=== PATIENT | female | born 1960 | race Caucasian/White ===

== ENCOUNTER 2025-06-30 09:56 | Outpatient (CLI) | payer MEDICARE, OTHER ==
[~2025-06-30 09:56] MED LIST: ROSU10TA98 PO
--- NOTE | 2025-06-30 14:01 | RADIOLOGY REPORT ---
CLINICAL INDICATION: IMPINGEMENT SYNDROME OF RIGHT SHOULDER COMPARISON: None. TECHNIQUE: Multiplanar, multisequence MRI of the right shoulder was performed without contrast. Contrast: None FINDINGS: Glenohumeral joint: There is no acute fracture. There is bone marrow edema in the humeral head adjacent to a high-grade articular cartilage defect with exposed bone and small osteophytes in the humeral head. Glenohumeral joint space is narrowed with another bulky osteophyte along the medial humeral head. There is a subchondral cyst in the humeral head. Susceptibility artifact in the glenoid related to prior surgery. There is chondral thinning in the medial glenoid. There is a small joint effusion. No synovitis. Acromioclavicular joint: The acromioclavicular joint is narrowed with capsular hypertrophy. Type 2 acromion. Rotator cuff and bursae: There is severe supraspinatus tendinosis. There is an interstitial tear. Infraspinatus tendinosis is present without tear. There is severe subscapularis tendinosis. Partial-thickness tear noted in the subscapularis tendon. Teres minor tendon is intact. There is no regional muscle atrophy. No fluid distention of the subacromial subdeltoid bursa. Biceps tendon and glenoid labrum: The long head biceps tendon is located within the bicipital groove and intact. Diffuse labral degeneration and chronic tear. IMPRESSION: 1. Severe glenohumeral joint osteoarthritis with exposed bone in the humeral head and bulky osteophytes. 2. Severe supraspinatus and subscapularis tendinosis with high-grade partial- thickness tears. No full-thickness rotator cuff tear. 3. Infraspinatus tendinosis without tear. 4. Labral degeneration and chronic tear.
== END 2025-06-30 23:59 | disposition home or self-care (01) ==
LOC: MRI02 09:56
PROVIDERS: ATTEND Physician Assistant
DX: S43.431A Superior glenoid labrum lesion of right shoulder, initial encounter (principal); S49.91XD Unspecified injury of right shoulder and upper arm, subsequent encounter; S43.491A Other sprain of right shoulder joint, initial encounter; M75.41 Impingement syndrome of right shoulder; M25.711 Osteophyte, right shoulder; M25.411 Effusion, right shoulder; M85.611 Other cyst of bone, right shoulder; M25.811 Other specified joint disorders, right shoulder; M75.81 Other shoulder lesions, right shoulder; M19.011 Primary osteoarthritis, right shoulder; X58.XXXA Exposure to other specified factors, initial encounter; Y93.89 Activity, other specified; Y92.89 Other specified places as the place of occurrence of the external cause; Y99.8 Other external cause status; X58.XXXD Exposure to other specified factors, subsequent encounter
CPT/HCPCS: 73221